=== PATIENT | male | born 1990 | race Two or more races ===

== ENCOUNTER 2019-08-14 10:51 | Emergency (ER) | payer OTHER ==
[~2019-08-14] VITALS: Ht 180.3 cm; Wt 88.0 kg
[2019-08-14 10:55] VITALS: BP 135/93
== END 2019-08-14 11:07 | disposition home or self-care (01) ==
LOC: ER 11:00
DX: F11.23 Opioid dependence with withdrawal (principal); F41.9 Anxiety disorder, unspecified; F10.10 Alcohol abuse, uncomplicated; F17.200 Nicotine dependence, unspecified, uncomplicated; Y90.9 Presence of alcohol in blood, level not specified